=== PATIENT | male | born 1990 | race African-American/Black ===

== ENCOUNTER 2016-06-20 21:54 | Emergency (ER) | payer OTHER ==
[2016-06-20 22:10] LABS: BASOPHIL COUNT 0.1 K/uL (0-0.1); EOSINOPHIL (%) 0.9 % (0-5); EOSINOPHIL COUNT 0.1 K/uL (0-0.3); HEMATOCRIT 42.7 % (38.0-50.0); IMMATURE GRANULOCYTE (%) 0.3 % (0.0-0.7); INSTRUMENT ABS NEUTROPHIL CT 8.7 K/uL; MCH 29.7 PG (29.0-34.0); MCV 87.5 FL (86-99); MEAN PLAT.VOLUME 10.6 uM^3 (9.0-12.4); MONOCYTE (%) 4.2 % (3-12); MONOCYTE COUNT 0.5 K/uL (0-0.8); NEUTROPHIL (%) 76.8 % (45-76); NEUTROPHIL COUNT 8.7 K/uL (1.8-6.4); PLATELET COUNT 241 K/uL (156-360); RBC DIS.WIDTH-CV 11.8 % (11.8-14.6); RBC DIS.WIDTH-SD 38.2 % (39-53); RED BLOOD COUNT 4.88 M/uL (4.00-5.50); WHITE BLOOD COUNT 11.3 K/uL (4.1-10.2)
[2016-06-20 22:22] LABS: AMYLASE 116 IU/L (1-118); CHLORIDE 104 mEq/L (99-109)
[2016-06-20 22:23] LABS: POTASSIUM 4.8 mEq/L (3.7-5.4); SODIUM 138 mEq/L (136-147)
[2016-06-20 22:24] LABS: GLUCOSE 94 mg/dL (70-99)
[2016-06-20 22:26] LABS: ANION GAP 8 MEQ/L (2-14)
[2016-06-20 22:27] LABS: SERUM ETHYL ALCOHOL < 10 mg/dL
[2016-06-20 22:29] LABS: UREA NITROGEN (BUN) 12 mg/dL (9-23)
[2016-06-20 22:31] LABS: LIPASE 24 U/L (1.0-51.0)
[2016-06-20 22:34] LABS: GFR ESTIMATE (CALCULATED) > 59 mL/min/
[2016-06-21] MEDS ORDERED: KEFLEX500 MG PO (00:25)
[2016-06-21] MEDS ORDERED: PERCOCET 5/31 TABLET PO (00:37)
== END 2016-06-21 01:30 ==
LOC: TRA 21:54
PROVIDERS: Emergency Medicine
DX: S41.002A Unspecified open wound of left shoulder, initial encounter (principal); S01.01XA Laceration without foreign body of scalp, initial encounter; X99.9XXA Assault by unspecified sharp object, initial encounter; Y92.149 Unspecified place in prison as the place of occurrence of the external cause; Y07.9 Unspecified perpetrator of maltreatment and neglect; Z87.891 Personal history of nicotine dependence
CPT/HCPCS: 70450; 70491; 71260; 72125; 80048; 81003; 82150; 83690; 85025; 86850; 86900; 86901; 99281; 99285; G0480; J0690; J2270; J2405